=== PATIENT | female | born 1935 | race Caucasian/White ===

== ENCOUNTER 2016-07-29 11:43 | Emergency (ER) | payer MEDICARE, BC ==
[~2016-07-29] VITALS: Ht 160 cm; Wt 83.4 kg
[~2016-07-29 11:43] MED LIST: ALBU18HF2 INH; ALBU2.5V7 AEROSOL; ASCO500T9 PO; CALC-52 PO; DIPH25CA84 PO; DOCU50CA PO; FEXO-11 PO; GUAI120015 PO; LOSA50TA52 PO; LUTE20TA PO; MOME13HF2 INH; MULT-795 PO; OMEP20TA11 PO; SIMV20TA89 PO
[2016-07-29 11:45] VITALS: Ht 160 cm; Wt 83.4 kg
--- OUTSIDE RECORDS SUMMARY | 2016-07-29 11:48 | XMS REPORT | Continuity of Care Document ---
Author Author [facility] Organization [facility] Address Unknown Phone Unavailable Support Name Relationship Address Phone ONIIBRAHIMA WOODWARD DO Caregiver [address] [place] [address] Unavailable PAOLO URIEL Parkinson DO Caregiver [address] [place] [address] Unavailable TALI BAUMAN Next Of Kin [place], [place] [id number] Insurance Providers Guarantor Rene Upton Address [address] [place] [address] Email DENIED 16 Payer Medicare Policy Number [id number] Subscriber's Name Rene Upton Relationship 18 Self Effective Date 00 [facility] Policy Number [id number] Subscriber's Name Rene Upton Relationship 18 Self Group Number [id number] Advance Directives Directive Response Recorded Date/Time Advanced Directives Type DPOA for Healthcare 09/28/13 9:22am Chief Complaint and Reason for Visit Chief Complaint Hypertension Reason for Visit Hypertension Problems Active Problems Medical Problem Onset Date Status Asthma Unknown Acute Asthma Unknown Acute Past Problems Medical Problem Onset Date Chest pain of uncertain etiology Unknown Headache Unknown High blood pressure Unknown Hypertension Unknown Medications Current Home Medications Medication Dose Units Route Directions Days Qty Instructions Start Date Albuterol Sulfate 2.5 Mg/3 Ml Vial.neb 2.5 Mg Aerosol Tx. Resp.tx Q4h While Awake 01/01/15 Albuterol Sulfate (Ventolin Hfa 90 Mcg/Actuation) 18 Gm Hfa.aer.ad 2 Puff Inhalation Every 4-6 Hours as needed for Shortness Of Air 01/01/15 Ascorbic Acid (Vitamin C) 500 Mg Tablet 2 Tab Oral Daily 01/01/15 Calcium Carbonate (Calcium) 500 Mg Tablet 1 Tab Oral Daily Diphenhydramine Hcl (Benadryl) 25 Mg Capsule 50 Mg Oral Bedtime 06/26/16 Docusate Sodium (Stool Softener) 50 Mg Capsule 50 Mg Oral Daily 07/01/10 Fexofenadine Hcl (Jenelle Allergy) 60 Mg Tablet 1 Tab Oral Twice A Day Do not drink Apple, Floyd, or Grapefruit juice within 4 hours of this medication, causes decreased absorption 06/26/16 Guaifenesin (Mucinex) 1,200 Mg Tbbp.12hr 1 Tab Oral Twice A Day 01/01/15 Losartan Potassium 50 Mg Tablet 50 Mg Oral Daily 01/01/15 Lutein 20 Mg Tablet 20 Mg Oral Daily 01/01/15 Mometasone Furoate (Asmanex Hfa) 13 Gm Hfa.aer.ad 1 Puff Inhalation Daily 01/01/15 Multivitamins W-Minerals/Lut (Centrum Silver Tablet) 1 Tab Tablet 1 Tab Oral Daily 07/04/10 Omeprazole Magnesium (Prilosec Otc) 20 Mg Tablet.dr 20 Mg Oral Daily 07/01/10 Simvastatin 20 Mg Tablet 20 Mg Oral Daily 07/01/10 Past Home Medications Medication Directions Ordered Status Multivitamins W-Minerals/Lut (Centrum Silver Tablet) 1 Tab Tablet, 1 Tab Oral Daily 07/01/10 Discontinued Social History Social History Problem Response Recorded Date/Time Onset Date Status Chewing Tobacco Status No 09/28/2013 8:40am Not Applicable Not Applicable Hx Substance Use No 06/26/2016 2:37pm Not Applicable Not Applicable Hx Alcohol Use No 06/26/2016 2:37pm Not Applicable Not Applicable Has the pt used tobacco in the last 12 months No 01/01/2015 12:52pm Not Applicable Not Applicable Tobacco Usage smoke 09/28/2013 9:21am Not Applicable Not Applicable Query Response Start Date Stop Date Smoking Status Never smoker Hospital Discharge Instructions No hospital discharge instructions. Plan of Care Discharge Date 06/26/16 6:13pm Disposition 01 DISCHARGED HOME, SELF-CARE Condition at Discharge Stable Instructions/Education Provided Hypertension (ED) Prescriptions See Medication Section Referrals URIEL BOONE DO Address: [address] [place] [phone] Additional Instructions/Education Take the Losartan as prescribed. If your blood pressure this evening is above 180 on the top number then please go ahead and take a second dose this evening. Make sure that you are drinking plenty of fluids at home and rest tonight. Eat something when you leave here as well. Follow up with Dr. Boone this week for reevaluation. Care Plan and Goals Physician Care Plan Problem:Hypertension Goal: Follow up with primary care provider Instructions: Take medications and follow care plan as discussed/written Functional Status No functional status results. Allergies, Adverse Reactions, Alerts Allergen Type Severity Reaction Status Last Updated hydrocodone bit Adverse Reaction Intermediate UPSET STOMACH Active propoxyphene HCl Adverse Reaction Intermediate NAUSEA Active 06/26/16 Pentazocine Lactate Adverse Reaction Intermediate UPSET STOMACH Active indomethacin sodium Adverse Reaction Intermediate UPSET STOMACH Active diphenhydramine HCl Allergy Unknown Active 06/26/16 Sulfa (Sulfonamide Antibiotics) Adverse Reaction Intermediate NAUSEA UPSET STOMACH Active 06/26/16 Morphine Adverse Reaction Intermediate NAUSEA Active 06/26/16 Codeine Adverse Reaction Intermediate NAUSEA, UPSET STOMACH Active Aspirin Allergy Severe THROAT CLOSES AND HYPOTENSION Active 06/26/16 Acetaminophen Adverse Reaction Intermediate UPSET STOMACH Active 06/26/16 Prednisone Allergy Unknown Active 06/26/16 Indomethacin Adverse Reaction Intermediate UPSET STOMACH Active 06/26/16 Ibuprofen Allergy Severe THROAT CLOSES AND HYPOTENSION Active 06/26/16 Zomepirac Adverse Reaction Intermediate UPSET STOMACH (ZOMAX) Active 06/26 Immunizations Query Response on File Recorded Date/Time Hx Influenza Vaccination Y fall 201301/01/15 12:52pm Hx Pneumococcal Vaccination Y 200801/01/15 12:52pm Hx Influenza Vaccination Y fall 201301/01/15 12:52pm Influenza Vaccine Hx 02/201606/26/16 2:37pm Vital Signs Acute Vital Signs Vital Response Date/Time Temperature (Fahrenheit) 98.3 deg F (96.8 - 99.1) 06/26/2016 6:13pm Temperature (Calculated Celsius) 36.52723 degrees C (36.0 - 37.3) 06/26/2016 6:13pm Pulse Rate (adult) 88 bpm (60 - 100) 06/26/2016 6:13pm Respiratory Rate 18 breaths/min (10 - 20) 06/26/2016 6:13pm O2 Sat by Pulse Oximetry 96 % (90 - 100) 06/26/2016 6:13pm Blood Pressure 150/74 mm Hg 06/26/2016 6:13pm Height (Feet) 5 feet 06/26/2016 2:10pm Height (Inches) 6.50 inches 06/26/2016 2:10pm Weight (Kilograms) 85.500 kg 06/26/2016 2:10pm Body Mass Index (BMI) 29.0 06/26/2016 2:10pm Results Laboratory Results Test Name Result Units Flags Reference Collection Date/Time Result Date/ Time Comments Influenza Type A Antigen NEGATIVE NEGATIVE 06/26/2016 12:52pm 2016 1:00pm Negative for Flu A protein antigen. Assay sensitivity is 90%. Influenza Type B Antigen NEGATIVE NEGATIVE 06/26/2016 12:52pm 2016 1:00pm Negative for Flu B protein antigen. Assay sensitivity is 90%. White Blood Count 12.2 T/MM3 H 4.5-11.0 06/26/2016 2:58pm 06/26/2016 3: 15pm Red Blood Count 4.07 M/MM3 4.00-5.20 06/26/2016 2:58pm 06/26/2016 3: 15pm Hemoglobin 12.8 GM/DL 12-16 06/26/2016 2:58pm 06/26/2016 3:15pm Hematocrit 39.5 % 36-46 06/26/2016 2:58pm 06/26/2016 3:15pm Mean Corpuscular Volume 97.1 UM3 80-100 06/26/2016 2:58pm 06/26/2016 3: 15pm Mean Corpuscular Hemoglobin 31.4 UUG 26-34 06/26/2016 2:58pm 2016 3:15pm Mean Corpuscular Hemoglobin Concent 32.4 GM/DL 31-37 06/26/2016 2:58pm 06/26/2016 3:15pm RDW Standard Deviation 45.1 FL 36.9-50.2 06/26/2016 2:58pm 06/26/2016 3 :15pm Platelet Count 214 T/MM3 130-400 06/26/2016 2:58pm 06/26/2016 3:15pm Mean Platelet Volume 9.8 UM3 9.4-12.4 06/26/2016 2:58pm 06/26/2016 3: 15pm Neutrophils (%) (Auto) 61.2 % 33-66 06/26/2016 2:58pm 06/26/2016 3: 15pm Lymphocytes (%) (Auto) 33.0 % 23-45 06/26/2016 2:58pm 06/26/2016 3: 15pm Monocytes (%) (Auto) 4.5 % 0-9.0 06/26/2016 2:58pm 06/26/2016 3:15pm Eosinophils (%) (Auto) 0.8 % 0-4 06/26/2016 2:58pm 06/26/2016 3:15pm Basophils (%) (Auto) 0.2 % 0-2 06/26/2016 2:58pm 06/26/2016 3:15pm Immature Granulocyte % (Auto) 0.3 % 0.0-0.5 06/26/2016 2:58pm 2016 3:15pm Absolute Neutrophils (auto) 7.5 T/MM3 1.8-7.7 06/26/2016 2:58pm 2016 3:15pm Absolute Lymphocytes (auto) 4.0 T/MM3 1-4.8 06/26/2016 2:58pm 2016 3:15pm Absolute Monocytes (auto) 0.6 T/MM3 0-0.8 06/26/2016 2:58pm 06/26/2016 3:15pm Absolute Eosinophils (auto) 0.1 T/MM3 0-0.5 06/26/2016 2:58pm 2016 3:15pm Absolute Basophils (auto) 0.0 T/MM3 0-0.2 06/26/2016 2:58pm 06/26/2016 3:15pm Absolute Immature Granulocyte (auto 0.04 T/MM3 H 0.00-0.03 06/26/2016 2: 58pm 06/26/2016 3:15pm Icterus Index < 2 0-7 06/26/2016 2:58pm 06/26/2016 3:22pm Chemistry Specimen Hemolysis < 15 0-25 06/26/2016 2:58pm 06/26/2016 3 :22pm 0-25: Specimen Exhibited No Hemolysis. Turbidity < 20 0-20 06/26/2016 2:58pm 06/26/2016 3:22pm Sodium Level 145 MEQ/L H 134-144 06/26/2016 2:58pm 06/26/2016 3:22pm Potassium Level 3.5 MEQ/L L 3.6-5 06/26/2016 2:58pm 06/26/2016 3:22pm Chloride Level 106 MEQ/L 98-107 06/26/2016 2:58pm 06/26/2016 3:22pm Carbon Dioxide Level 28 MEQ/L 22-30 06/26/2016 2:58pm 06/26/2016 3: 22pm Anion Gap 11 MEQ/L 5-15 06/26/2016 2:58pm 06/26/2016 3:22pm Blood Urea Nitrogen 14.0 MG/DL 7-17 06/26/2016 2:58pm 06/26/2016 3: 22pm Creatinine 0.8 MG/DL 0.7-1.2 06/26/2016 2:58pm 06/26/2016 3:22pm BUN/Creatinine Ratio 18 RATIO 6-26 06/26/2016 2:58pm 06/26/2016 3:22pm Glomerular Filtration Rate Calc 69 06/26/2016 2:58pm 06/26/2016 3: 22pm Glucose Level 94 MG/DL 65-110 06/26/2016 2:58pm 06/26/2016 3:22pm Calculated Osmolality 280 MOSM/KG 261-280 06/26/2016 2:58pm 06/26/2016 3:22pm Calcium Level 9.2 MG/DL 8.4-10.2 06/26/2016 2:58pm 06/26/2016 3:22pm Troponin I 0.018 ng/ml 0-0.12 06/26/2016 2:58pm 06/26/2016 3:33pm Troponin values with a difference of 55% increase from orginal troponin value represent a true biological DELTA value. (%increase Calc=Orginal Troponin value, divided by subsequent Troponin value, multiplied by 100) Name: RENE UPTON Unit #: [id number] : 1935 Sex: F Admit Date: Loc / Svc: ED Discharge Date: DIAGNOSTIC IMAGING REPORT Report #: [id number] [facility] [place] Olivera Indication: ITS.REASON: htn, CHEST PAIN PROCEDURE: CHEST 1 VIEW: Encounter: Initial Comparison: Two-view chest, 09/28/2013 Findings: A frontal chest radiograph demonstrates surgical clips in each axilla. The heart is enlarged and the lungs are clear and no pleural fluid is identified. There is no pulmonary vascular engorgement. Trachea is midline. Diminished bone density is noted and there are degenerative changes of the spine. Impression: Negative for acute cardiopulmonary abnormality. . Procedures No known history of procedures. Encounters Encounter Location Arrival/Admit Date Discharge/Depart Date Attending Provider Departed Emergency Room [facility] 06/26/16 2:03pm 06/26/16 6: 13pm IBRAHIMA BUNN DO Departed Emergency Room [facility] 06/26/16 11:43am 06/26/16 1: 15pm ROBBIE FREDERICK APRN Recent Diagnosis
--- OUTSIDE RECORDS SUMMARY | 2016-07-29 11:48 | XMS REPORT | Continuity of Care Document ---
Author Author [facility] Organization [facility] Address Unknown Phone Unavailable Allergies Medications Problems Procedures Results Encounters ACCT No. Visit Date/Time Discharge Status Pt. Type Provider Facility Loc./Unit Complaint [id number] 05/27/2013 13:18:00 05/27/2013 23 :59:59 CLS Outpatient [id number] 05/12/2013 12:46:00 05/12/2013 23 :59:59 CLS Outpatient
[2016-07-29] MEDS ORDERED: ALBU8.5H INH (12:24)
[2016-07-29] MEDS ORDERED: CALC600T12 PO (12:24)
[2016-07-29] MEDS ORDERED: ACET-2161 PO (12:26)
--- NOTE | 2016-07-29 12:37 | ERPDOC ---
Departure Disposition Decision Date: Jul 29, 2016 Disposition Decision Time: 15:26 Disposition: 01 DISCHARGED HOME, SELF-CARE Impression Impression Impression: Primary Impression: Lumbar back sprain Encounter type: initial encounter Qualified Codes: S33.5XXA - Sprain of ligaments of lumbar spine, initial encounter Additional Impressions: Fall Encounter type: initial encounter Qualified Codes: W19.XXXA - Unspecified fall, initial encounter Hip pain Laterality: right Qualified Codes: M25.551 - Pain in right hip Severity: Moderate Condition: Improved Seen By: Mid-level only Referrals: URIEL BOONE DO (Family) Patient Instructions: Low Back Strain (ED) Problems/Meds/Labs Reviewed?: Yes Medications reviewed and manag: Yes Additional Instructions: Your CT and x-rays do not show any fracture or acute findings. You will be sore fore several days after fall. You may take Percocet 1-2 tabs every 6 hours as needed for pain. Start initially with one tablet. This medication may cause drowsiness so avoid driving, operating heavy machinery or drinking alcohol while taking. This medication may cause constipation so you may need to take a stool softener while taking. Follow treatment plan. You may use ice to her back for the 1st 48 hours and then heat for pain. Follow with your PCP next week if symptoms are not improving. Follow up care ordered?: Yes Mental Status: Alert, Oriented Scripts Oxycodone HCl/Acetaminophen (Percocet 5-325 mg Tablet) 5-325 Tablet 1-2 TAB PO Q6HPRN Y for PAIN, #20 TAB Take 1 tablet, by mouth, every 4 hours as needed for pain. Prov: SIMONE CASTAÑEDA APRN 07/29/16 HPI - Back Pain General Chief Complaint: Low Back Pain or Injury Stated Complaint: FELL, BACK PAIN Time Seen by Provider: 12:37 Source: patient HPI - Back Pain Initial Comments 80-year-old female presents to ER with complaint of low back pain. Patient states that she tripped over the threshold when coming in the door today falling onto her right side. Patient denies LOC, neck pain. Patient states that pain does radiate to right lateral hip. Patient has had previous fusion of L4. Patient has been ambulatory since injury. Patient has had right hip replaced and daughter's concern because patient has complained of hip pain. Patient denies pain associated with fall other than radiation from lumbar area. Patient denies any loss of sensation/function/numbness/tingling of lower extremities, loss of bowel or bladder, urinary retention, or ataxia. Patient appears in no acute distress however she does rate her pain a 9/10. Patient easily moves from side to side, able to sit up easily. Occurred At: home Duration: 1-3 hrs Pain/Severity Scale: Now: 9 Allergies: Coded Allergies: aspirin (Verified Allergy, Severe, THROAT CLOSES AND HYPOTENSION, 07/29/16) ibuprofen (Verified Allergy, Severe, THROAT CLOSES AND HYPOTENSION, ) diphenhydramine HCl (Verified Allergy, Unknown, 07/29/16) PATIENT STATES IS ALLERGIC TO THE DYE IN [place] prednisone (Verified Allergy, Unknown, 07/29/16) Pentazocine Lactate (Verified Adverse Reaction, Intermediate, UPSET STOMACH, 07/29/16) Sulfa (Sulfonamide Antibiotics) (Verified Adverse Reaction, Intermediate, NAUSEA UPSET STOMACH, 07/29/16) acetaminophen (Verified Adverse Reaction, Intermediate, UPSET STOMACH, ) NO ALLERY TO PLAIN ACETAMINOPHEN codeine (Verified Adverse Reaction, Intermediate, NAUSEA, UPSET STOMACH, ) hydrocodone bit (Verified Adverse Reaction, Intermediate, UPSET STOMACH, ) indomethacin (Verified Adverse Reaction, Intermediate, UPSET STOMACH, 07/29) indomethacin sodium (Verified Adverse Reaction, Intermediate, UPSET STOMACH, 07/29/16) morphine (Verified Adverse Reaction, Intermediate, NAUSEA, 07/29/16) propoxyphene HCl (Verified Adverse Reaction, Intermediate, NAUSEA, 07/29/16 ) zomepirac (Verified Adverse Reaction, Intermediate, UPSET STOMACH (ZOMAX) , 07/29/16) Past History Past Medical History Metabolic: hypercholesterolemia, hypertension Cardiac: CAD Respiratory: asthma GI: GERD, gallbladder disease Female: DENIES: renal insufficiency Neurological: DENIES: seizures Musculoskeletal: back pain, osteoarthritis Psychological: DENIES: depression Surgical History General: back, gallbladder Reproductive/: hysterectomy Joint: carpal tunnel, hip Family History Family PMH: FOUND: other (noncontributory) Vaccines Hx Influenza Vaccination: Yes (FALL 2013) Hx Pneumococcal Vaccination: Yes (2008) Social History Second Hand Exposure: No Substance Use Type: does not use Alcohol Intake: none Sexuality: male partner Review of Systems Constitutional Constitutional: DENIES: chills, dizziness, fever, weakness Eyes General: DENIES: erythema, exudate Lids/Accessories: DENIES: erythema, swelling Vision: DENIES: blurring ENMT Ears: DENIES: pain Sinuses: DENIES: congestion, rhinorrhea Mouth/Throat: DENIES: sore throat Cardiovascular Cardiac: DENIES: chest pain, murmur Rhythm/Rate: DENIES: palpitations Pulmonary Respiratory: DENIES: cough, dyspnea GI Upper Abdomen: DENIES: nausea, pain, vomiting Lower Abdomen: DENIES: diarrhea, pain General: DENIES: dysuria, pain Musculoskeletal General: pain, see HPI, tenderness Integumentary Skin: DENIES: color change, itching, rash Neurological General: DENIES: ataxia, change in strength, numbness, paralysis/paresis, weakness Psychiatric Psychiatric: DENIES: anxiety, depression, nervousness Physical Exam General General Nourishment: well nourished, well developed, no acute distress, adult General Body Habitus: well groomed Vitals and Pain First Documented Vital Signs Date Time Temp Pulse Resp B/P Pulse Ox O2 Delivery O2 Flow Rate FiO2 07/29/16 11:45 97.6 94 14 182/97 96 Weight: Kilograms: 83.400 Height (feet): 5 Height (inches): 3.00 Triage Pain Scale: Eyes (brief) Eyes Brief: found: EOMI ENMT (brief) ENMT Brief: NOT FOUND: nasal exudate, nasal swelling Neck (brief) Neck: FOUND: trachea midline, NOT FOUND: adenopathy, tenderness, thyromegaly Respiratory (brief) Respiratory: FOUND: clear all teresa, equal bilaterally, symmetrical Cardiovascular (brief) Cardiac: FOUND: regular rate, regular rhythm Musculoskeletal Joint #1: Side: Right Joint: shoulder, elbow, wrist, hip, knee, ankle Joint Findings: NOT FOUND: ROM limited, deformity, discoloration, instability, pain, swelling Joint #2: Side: Left Joint: shoulder, elbow, wrist, hip, knee, ankle Joint Findings: NOT FOUND: ROM limited, deformity, discoloration, instability, pain, swelling Back: FOUND: spine point tenderness (L1, with mild erythema over tissue), NOT FOUND: spasm Integumentary (brief) Integumentary Brief: FOUND: lesions, pink, warm Neurologic Mental Status: FOUND: alert, oriented Cranial Nerves: NOT FOUND: facial asymmetry Motor : Motor Side: bilateral Motor Location: foot flexion, stoneworking sander strength Motor Degree: 5 Sensation: FOUND: soft touch intact x4 ext Cerebellar: FOUND: tandem walk Psychiatric (brief) Psychiatric Brief: FOUND: normal affect Differential Diagnoses Considering: Disc Herniation, Fracture, Lumbar Sprain, Lumbar Strain Progress Results/Orders Orders Procedure Category Date Status Time Fentanyl (Fentanyl) PHA 07/29/16 Complete 13:00 Lumbar Spine 2-3 Views RAD 07/29/16 Taken Pelvis W/1 View Rt Hip RAD 07/29/[address] Lumbar Spine W/O CT 07/29/16 Taken Contrast Losartan (Cozaar 50 PHA 07/29/16 Complete mg) 13:30 Medications Current ED Medications Fentanyl (Fentanyl) 50 mcg O ONCE SHAYLEE Last administered on 07/29/16 12:57; Start 07/29/16 at 13:00; Stop 07/29/16 at 13:01; Status DC Losartan Potassium (COZAAR 50 mg) 50 mg O ONCE PO Last administered on 13:54; Start 07/29/16 at 13:30; Stop 07/29/16 at 13:31; Status DC Progress Progress Patient has improving pain with fentanyl. I discussed x-rays and CT findings with patient/daughter and answered questions. Patient reports she is cannot take anything with codeine or hydrocodone in it. Only take Tylenol at home for pain. I will send patient with prescription for Percocet. Patient will try Percocet starting with 1 every 4-6 hours for pain as needed. She may increase to 2 every 4-6 hours as needed. I discussed treatment plan with patient, follow-up with PCP and return precautions which she verbalized understanding. Xray Xray #1: Xray: L-Spine Interpretation: Abnormal (unable to determine if fracture due to DJD (Dr. Addison)) Xray #2: Xray: Hip R (and plevis) Interpretation: Normal (no acute findings (Dr. Addison)) CT CT : CT: Other (Lumbar spine) Interpretation: Abnormal (No acute fracture or suluxation. chronic degenerative changes, hepatic lobe lesion) SIMONE CASTAÑEDA APRN Jul 29, 2016 12:37
--- OUTSIDE RECORDS SUMMARY | 2016-07-29 12:37 | XMS REPORT | Continuity of Care Document ---
Author Author [facility] Organization [facility] Address Unknown Phone Unavailable Allergies Medications Problems Procedures Results Encounters ACCT No. Visit Date/Time Discharge Status Pt. Type Provider Facility Loc./Unit Complaint [id number] 05/27/2013 13:18:00 05/27/2013 23 :59:59 CLS Outpatient [id number] 05/12/2013 12:46:00 05/12/2013 23 :59:59 CLS Outpatient
[2016-07-29] MEDS ORDERED: FENTANYL 100mcg/2ml INJECTION NAS ONE (13:00)
--- NOTE | 2016-07-29 13:01 | NUR ---
RADIOLOGY PT TO RADIOLOGY BY CART AT THIS TIME.
--- NOTE | 2016-07-29 13:27 | NUR ---
RETURN PT RETURNED FROM RADIOLOGY BY CART AT THIS TIME.
[2016-07-29] MEDS ORDERED: LOSARTAN 50 MG TABLET PO ONE (13:30)
--- NOTE | 2016-07-29 13:54 | NUR ---
STATUS PT REPORTS PAIN HAD DECREASED DOWN TO 4/10 AFTER FENTANYL ADM, BUT IS SLOWLY STARTING TO INCREASE AGAIN WITH CURRENT PAIN 6/10. PROVIDER NOTIFIED, NO NEW ORDERS REC'D. DENIES FURTHER NEEDS AT THIS TIME. CALL LIGHT WITHIN REACH, WILL CONTINUE TO MONITOR.
--- NOTE | 2016-07-29 13:59 | NUR ---
CT PT TO CT BY CART AT THIS TIME.
--- NOTE | 2016-07-29 14:18 | NUR ---
RETURN PT RETURNED FROM CT BY CART AT THIS TIME.
[2016-07-29] MEDS ORDERED: OXYC1TAB8 PO (15:30)
[2016-07-29 15:42] VITALS: BP 146/73; PULSE 80; RESP 16; TEMP 97.6; O2SAT 96
--- NOTE | 2016-07-29 15:42 | NUR ---
DISCHARGE WRITTEN INSTRUCTIONS WITH PERCOCET RX REVIEWED AND SENT WITH PT. PT VERBALIZES UNDERSTANDING OF DI, DENIES QUESTIONS. REPORTS PAIN 5-6/10 ON DISMISSAL. PT AMBULATES OUT OF ER WITH SLOW, BUT STEADY GAIT ACCOMP BY FAMILY AT THIS TIME.
--- NOTE | 2016-07-30 09:13 | DI ---
Indication: ITS.REASON: pain over L1 after fall PROCEDURE: CT LUMBAR SPINE W/O CONTRAST: Encounter: Initial Comparison: None Technique: Axial noncontrast CT imaging of the lumbar spine was performed with coronal and sagittal two-dimensional reformats. Automated Exposure Control and Iterative Reconstruction dose reducing techniques were utilized. FINDINGS: The alignment of the lumbar spine is abnormal but chronically so with degenerative anterolisthesis of L3 on L4. Fusion of the posterior elements at L3-S1. Diffuse degenerative changes. Diffuse bony demineralization. No fractures or traumatic subluxation of the lumbar spine is evident. Severe central canal stenosis in the mid to lower lumbar region. Left hepatic cyst. IMPRESSION: No evidence for acute traumatic injury of the lumbar spine. There is a preliminary report by [facility]. .
--- NOTE | 2016-07-30 09:19 | DI ---
Indication: ITS.REASON: pain at L1 PROCEDURE: LUMBAR SPINE 2-3 VIEWS: Encounter: Initial Comparison: CT lumbar spine from the same date Findings: No acute fracture identified. Straightening of the alignment with loss of the normal lordosis. Degenerative changes with chronic osseous fusion of the posterior elements in the mid to lower lumbar region. There may be a chronic mild compression deformity of T11. Right hip replacement. Impression: No acute fracture. .
--- NOTE | 2016-07-30 10:22 | DI ---
Indication: ITS.REASON: pain lateral hip after fall PROCEDURE: PELVIS W/1 VIEW RT HIP: Encounter: Initial Comparison: None Findings: Right total hip replacement appears intact. Mild degenerative change in the contralateral left hip. Pubic symphysis is maintained. Impression: No acute fracture. .
== END 2016-07-29 15:42 | disposition home or self-care (01) ==
LOC: ED 11:43
DX: S33.5XXA Sprain of ligaments of lumbar spine, initial encounter (principal); M25.551 Pain in right hip; W01.0XXA Fall on same level from slipping, tripping and stumbling without subsequent striking against object, initial encounter; Y93.01 Activity, walking, marching and hiking; Y92.008 Other place in unspecified non-institutional (private) residence as the place of occurrence of the external cause; Y99.8 Other external cause status
CPT/HCPCS: 72100; 72131; 73501; 99284; A9270; J3010

== ENCOUNTER 2016-08-05 06:30 | Emergency (ER) | payer MEDICARE, BC ==
[~2016-08-05] VITALS: Ht 167.6 cm; Wt 81.7 kg
[~2016-08-05 06:30] MED LIST changes: +ACET-2161 PO; -ALBU18HF2 INH; +ALBU8.5H INH; -CALC-52 PO; +CALC600T12 PO; -FEXO-11 PO; +OXYC1TAB8 PO
--- OUTSIDE RECORDS SUMMARY | 2016-08-05 06:34 | XMS REPORT | Continuity of Care Document ---
Author Author [facility] Organization [facility] Address Unknown Phone Unavailable Allergies Medications Problems Procedures Results Encounters ACCT No. Visit Date/Time Discharge Status Pt. Type Provider Facility Loc./Unit Complaint [id number] 05/27/2013 13:18:00 05/27/2013 23 :59:59 CLS Outpatient [id number] 05/12/2013 12:46:00 05/12/2013 23 :59:59 CLS Outpatient
--- OUTSIDE RECORDS SUMMARY | 2016-08-05 06:34 | XMS REPORT | Continuity of Care Document ---
Author Author [facility] Organization [facility] Address Unknown Phone Unavailable Support Name Relationship Address Phone ALEXANDRE JESUS DO Caregiver [address] [place] [address] Unavailable PAOLO URIEL Parkinson DO Caregiver [address] [place] [address] Unavailable TALI BAUMAN Next [place], [place] [id number] Insurance Providers Guarantor Rene Upton Address [address] [place] [address] Email DENIED 07-29-16 Payer Medicare Policy Number [id number] Subscriber's Name Rene Upton Relationship 18 Self Effective Date 00 Payer [facility] Policy Number [id number] Subscriber's Name Rene Upton Relationship 18 Self Group Number [id number] Advance Directives Directive Response Recorded Date/Time Advanced Directives Type DPOA for Healthcare 09/28/13 9:22am Chief Complaint and Reason for Visit Chief Complaint Low Back Pain or Injury Reason for Visit [id number] Hip pain Fall Problems Active Problems Medical Problem Onset Date Status Asthma Unknown Acute Asthma Unknown Acute Past Problems Medical Problem Onset Date Chest pain of uncertain etiology Unknown Fall Unknown Headache Unknown High blood pressure Unknown Hip pain Unknown Hypertension Unknown Lumbar back sprain Unknown Medications Current Home Medications Medication Dose Units Route Directions Days Qty Instructions Start Date Acetaminophen (Acetaminophen Extra Strength) 500 Mg Tablet 2 Tab Oral Every 8 Hours as needed for Pain 07/29/16 Albuterol Sulfate 2.5 Mg/3 Ml Vial.neb 2.5 Mg Aerosol Tx. Resp.tx Q4h While Awake 01/01/15 Albuterol Sulfate (Proair Hfa 90 Mcg/Actuation) 8.5 Gm Hfa.aer.ad 1 Puff Inhalation As Needed 07/29/16 Ascorbic Acid (Vitamin C) 500 Mg Tablet 1,000 Mg Oral Daily 01/01 Calcium Carbonate (Calcium) 600 Mg Tablet 600 Mg Oral Daily 07/29 Diphenhydramine Hcl (Benadryl) 25 Mg Capsule 50 Mg Oral Bedtime 06/26/16 Docusate Sodium (Stool Softener) 50 Mg Capsule 50 Mg Oral Daily 07/01/10 Guaifenesin (Mucinex) 1,200 Mg Tbbp.12hr 600 Mg Oral Twice A Day 01/01/15 Losartan Potassium 50 Mg Tablet 50 Mg Oral Daily 01/01/15 Lutein 20 Mg Tablet 20 Mg Oral Daily 01/01/15 Mometasone Furoate (Asmanex Hfa) 13 Gm Hfa.aer.ad 1 Puff Inhalation Daily 01/01/15 Multivitamins W-Minerals/Lut (Centrum Silver Tablet) 1 Tab Tablet 1 Tab Oral Daily 07/04/10 Omeprazole Magnesium (Prilosec Otc) 20 Mg Tablet.dr 20 Mg Oral Daily 07/01/10 Oxycodone Hcl/Acetaminophen (Percocet 5-325 Mg Tablet) 5-325 Tablet 1-2 Tab Oral Every 6 Hr Prn as needed for Pain 20 Tablet Take 1 tablet, by mouth, every 4 hours as needed for pain. 07/29/16 Simvastatin 20 Mg Tablet 20 Mg Oral Daily 07/01/10 Past Home Medications Medication Directions Ordered Status Multivitamins W-Minerals/Lut (Centrum Silver Tablet) 1 Tab Tablet, 1 Tab Oral Daily 07/01/10 Discontinued Social History Social History Problem Response Recorded Date/Time Onset Date Status Chewing Tobacco Status No 09/28/2013 8:40am Not Applicable Not Applicable Hx Substance Use No 07/29/2016 12:07pm Not Applicable Not Applicable Hx Alcohol Use No 07/29/2016 12:07pm Not Applicable Not Applicable Has the pt used tobacco in the last 12 months No 01/01/2015 12:52pm Not Applicable Not Applicable Tobacco Usage smoke 09/28/2013 9:21am Not Applicable Not Applicable Query Response Start Date Stop Date Smoking Status Never smoker Hospital Discharge Instructions No hospital discharge instructions. Plan of Care Discharge Date 07/29/16 3:42pm Disposition 01 DISCHARGED HOME, SELF-CARE Condition at Discharge Stable Instructions/Education Provided Low Back Strain (ED) Prescriptions See Medication Section Referrals URIEL BOONE DO Address: [address] [place] [address] [address] [place] [phone] Additional Instructions/Education Your CT and x-rays do not show any fracture or acute findings. You will be sore fore several days after fall. You may take Percocet 1-2 tabs every 6 hours as needed for pain. Start initially with one tablet. This medication may cause drowsiness so avoid driving, operating heavy machinery or drinking alcohol while taking. This medication may cause constipation so you may need to take a stool softener while taking. Follow treatment plan. You may use ice to her back for the 1st 48 hours and then heat for pain. Follow with your PCP next week if symptoms are not improving. Care Plan and Goals Physician Care Plan Problem: Lumbar sprain, fall, hip pain Goal: Follow up with primary care provider Instructions: Take medications and follow care plan as discussed/written Functional Status No functional status results. Allergies, Adverse Reactions, Alerts Allergen Type Severity Reaction Status Last Updated hydrocodone bit Adverse Reaction Intermediate UPSET STOMACH Active propoxyphene HCl Adverse Reaction Intermediate NAUSEA Active 07/29/16 Pentazocine Lactate Adverse Reaction Intermediate UPSET STOMACH Active indomethacin sodium Adverse Reaction Intermediate UPSET STOMACH Active diphenhydramine HCl Allergy Unknown Active 07/29/16 Sulfa (Sulfonamide Antibiotics) Adverse Reaction Intermediate NAUSEA UPSET STOMACH Active 07/29/16 Morphine Adverse Reaction Intermediate NAUSEA Active 07/29/16 Codeine Adverse Reaction Intermediate NAUSEA, UPSET STOMACH Active Aspirin Allergy Severe THROAT CLOSES AND HYPOTENSION Active 07/29/16 Acetaminophen Adverse Reaction Intermediate UPSET STOMACH Active 07/29/16 Prednisone Allergy Unknown Active 07/29/16 Indomethacin Adverse Reaction Intermediate UPSET STOMACH Active 07/29/16 Ibuprofen Allergy Severe THROAT CLOSES AND HYPOTENSION Active 07/29/16 Zomepirac Adverse Reaction Intermediate UPSET STOMACH (ZOMAX) Active 07/29 Immunizations Query Response on File Recorded Date/Time Hx Influenza Vaccination Y fall 201301/01/15 12:52pm Hx Pneumococcal Vaccination Y 200801/01/15 12:52pm Hx Influenza Vaccination Y fall 201301/01/15 12:52pm Influenza Vaccine Hx 02/201607/29/16 12:07pm Vital Signs Acute Vital Signs Vital Response Date/Time Temperature (Fahrenheit) 97.6 deg F (96.8 - 99.1) 07/29/2016 11:45am Temperature (Calculated Celsius) 36.77534 degrees C (36.0 - 37.3) 07/29/2016 11:45am Pulse Rate (adult) 94 bpm (60 - 100) 07/29/2016 11:45am Respiratory Rate 18 breaths/min (10 - 20) 07/29/2016 12:57pm O2 Sat by Pulse Oximetry 96 % (90 - 100) 07/29/2016 11:45am Blood Pressure 182/97 mm Hg 07/29/2016 11:45am Height (Feet) 5 feet 07/29/2016 11:45am Height (Inches) 3.00 inches 07/29/2016 11:45am Weight (Kilograms) 83.400 kg 07/29/2016 11:45am Body Mass Index (BMI) 32.0 07/29/2016 11:45am Results Laboratory Results Test Name Result Units [...] by subsequent Troponin value, multiplied by 100) Procedures Procedure Status Date Provider(s) Ct head/brain w/o dye Completed 06/26/16 Chest x-ray 1 view frontal Completed 06/26/16 Metabolic panel total ca Completed 06/26/16 Assay of troponin quant Completed 06/26/16 Complete cbc w/auto diff wbc Completed 06/26/16 Electrocardiogram tracing Completed 06/26/16 Ther/proph/diag inj iv push Completed 06/26/16 Emergency dept visit Completed 06/26/16 [id number]"INJECTION, HYDRALAZINE HCL, UP TO 20 MG" Completed 06/26/16 [id number]"INJECTION, HYDRALAZINE HCL, UP TO 20 MG" Completed 06/26/16 Encounters Encounter Location Arrival/Admit Date Discharge/Depart Date Attending Provider Departed Emergency Room [facility] 07/29/16 11:43am 07/29/16 3: 42pm ALEXANDRE JESUS DO Departed Emergency Room [facility] 06/26/16 2:03pm 06/26/16 6: 13pm IBRAHIMA BUNN DO Departed Emergency Room [facility] 06/26/16 11:43am 06/26/16 1: 15pm ROBBIE FREDERICK APRN Recent Diagnosis
[2016-08-05 06:43] VITALS: Ht 167.6 cm; Wt 81.7 kg
--- NOTE | 2016-08-05 06:50 | NUR ---
[employer] TENDER R LOWER POSTERIOR RIB
[2016-08-05] MEDS ORDERED: METH500T (06:54)
--- NOTE | 2016-08-05 06:55 | NUR ---
DR SAEED IN
--- NOTE | 2016-08-05 07:05 | ERPDOC ---
Departure Disposition Decision Date: Aug 05, 2016 Disposition Decision Time: 08:09 Disposition: 01 DISCHARGED HOME, SELF-CARE Impression Impression Impression: Primary Impression: Contusion of rib on right side Severity: Moderate Condition: Stable Seen By: Physician only Referrals: URIEL BOONE DO (Family) Patient Instructions: Rib Contusion (ED) Problems/Meds/Labs Reviewed?: Yes Medications reviewed and manag: Yes Follow up care ordered?: Yes Mental Status: Alert, Oriented Scripts Carisoprodol (Soma) 250 Mg Tablet 1 TAB PO Q6H Y for PAIN, #15 TAB Prov: ARLEY SAEED MD 08/05/16 HPI - Back Pain General Chief Complaint: Low Back Pain or Injury Stated Complaint: BACK SPASM Time Seen by Provider: 07:04 HPI - Back Pain Initial Comments 80 yo female with right mid back pain, s/p fall one week ago. Could not sleep last few nights due to pain. THis is her 3rd visit to ed for this fall. Hip has been r/o, but pain in ribs cont.Pain 8/10 with flexion and pressure on rib. Allergies: Coded Allergies: aspirin (Verified Allergy, Severe, THROAT CLOSES AND HYPOTENSION, 08/05/16) ibuprofen (Verified Allergy, Severe, THROAT CLOSES AND HYPOTENSION, 08/05/16 ) prednisone (Verified Allergy, Unknown, 08/05/16) Pentazocine Lactate (Verified Adverse Reaction, Intermediate, UPSET STOMACH, 08/05/16) Sulfa (Sulfonamide Antibiotics) (Verified Adverse Reaction, Intermediate, NAUSEA UPSET STOMACH, 08/05/16) codeine (Verified Adverse Reaction, Intermediate, NAUSEA, UPSET STOMACH, ) hydrocodone bit (Verified Adverse Reaction, Intermediate, UPSET STOMACH, ) indomethacin (Verified Adverse Reaction, Intermediate, UPSET STOMACH, ) indomethacin sodium (Verified Adverse Reaction, Intermediate, UPSET STOMACH, 08/05/16) morphine (Verified Adverse Reaction, Intermediate, NAUSEA, 08/05/16) propoxyphene HCl (Verified Adverse Reaction, Intermediate, NAUSEA, 08/05/16) zomepirac (Verified Adverse Reaction, Intermediate, UPSET STOMACH (ZOMAX) , 08/05/16) Past History Past Medical History Metabolic: hypercholesterolemia, hypertension Cardiac: CAD Respiratory: asthma GI: GERD, gallbladder disease Musculoskeletal: back pain, osteoarthritis Surgical History General: back, gallbladder Reproductive/: hysterectomy Joint: carpal tunnel, hip Family History Family PMH: FOUND: other Vaccines Hx Influenza Vaccination: Yes (FALL 2013) Hx Pneumococcal Vaccination: Yes (2008) Social History Second Hand Exposure: No Substance Use Type: does not use Alcohol Intake: none Sexuality: male partner Review of Systems Pulmonary Respiratory: see HPI Musculoskeletal General: see HPI All other Systems All Other Systems: Reviewed and Negative Physical Exam General General Nourishment: well nourished, well developed Distress Description right post rib pain Vitals and Pain First Documented Vital Signs Date Time Temp Pulse Resp B/P Pulse Ox O2 Delivery O2 Flow Rate FiO2 08/05/16 06:32 98.5 90 20 185/88 97 Room Air Weight: Kilograms: 81.700 Height (feet): 5 Height (inches): 6.00 Triage Pain Scale: Normal Exams: Head: Normocephalic w/o trauma Chest/Resp: Clear all teresa, with good airflow, and symmetry bilaterally CV: Regular rate and rhythm, without murmur or gallop, Pulses 2+ all extremities, capillary refill, <2 seconds all ext., no pedal edema noted Abdomen: Bowel sounds positive, soft, non-tender, non-distended, no hepatosplenomegaly, masses or bruits noted Neurologic: Patient is alert, and oriented, cranial nerves, motor/sensory/ cerebellar, exams w/o gross deficits, to observation Psychiatric: Patient exhibits, appropriate attention, emotion and affect Musculoskeletal (brief) Musculoskeletal Brief: FOUND: tenderness (right post 5-7 ribs, no bruising noted) Differential Diagnoses Considering: Compression Fracture, Fracture, Thoracic Sprain, Thoracic Strain Progress Results/Orders Orders Procedure Category Date Status Time Ribs Bilateral RAD 08/05/16 Taken 07:05 Carisoprodol PHA 08/05/16 In Process (Carisoprodol) 07:15 Medications Current ED Medications Carisoprodol (Carisoprodol) 350 mg O PO Last administered on 08/05/16t 07:41; Start 08/05/16 at 07:15 Progress Progress Xray neg. Bruising of ribs. Soma 325 given for pain relief. This is not a med I use often, but it may help as a solo pain/muscle relaxant for this patient. She is to follow up with PCP to see if the med is effective. ARLEY SAEED MD Aug 05, 2016 07:05
--- OUTSIDE RECORDS SUMMARY | 2016-08-05 07:11 | XMS REPORT | Continuity of Care Document ---
Author Author [facility] Organization [facility] Address Unknown Phone Unavailable Allergies Medications Problems Procedures Results Encounters ACCT No. Visit Date/Time Discharge Status Pt. Type Provider Facility Loc./Unit Complaint [id number] 05/27/2013 13:18:00 05/27/2013 23 :59:59 [facility] Outpatient [id number] 05/12/2013 12:46:00 05/12/2013 23 :59:59 CLS Outpatient
[2016-08-05] MEDS ORDERED: CARISOPRODOL 350 MG TABLET PO SCH (07:15)
--- NOTE | 2016-08-05 07:41 | NUR ---
RETURNED FROM [facility]
[2016-08-05] MEDS ORDERED: CARI250T PO (08:10)
[2016-08-05 08:32] VITALS: BP 166/74; PULSE 83; RESP 20; TEMP 98.5; O2SAT 97
--- NOTE | 2016-08-05 08:32 | NUR ---
DISMISSAL PT IS MOVING MUCH BETTER AFTER SOMA. PT IS VERY PLEASED. DISCHARGED PER WC ACCOMPANIED BY RN TO CAR.
--- NOTE | 2016-08-06 13:07 | DI ---
Indication: ITS.REASON: fall one week ago with posterior rib pain PROCEDURE: RIBS BILATERAL: Encounter: Initial Comparison: Chest x-ray dated June 26, 2016 and rib radiographs dated September 21, 2014 Findings: AP and oblique views of the right ribs: No acute displaced rib fracture seen. Surgical clips in the right axillary area. AP and oblique views of the left ribs: No acute displaced rib fracture seen. Left axillary surgical clips. Impression: No acute displaced rib fracture seen. .
== END 2016-08-05 08:32 | disposition home or self-care (01) ==
LOC: ED 06:30
DX: S20.221D Contusion of right back wall of thorax, subsequent encounter (principal); W19.XXXD Unspecified fall, subsequent encounter